=== PATIENT | female | born 1960 | race Caucasian/White ===

== ENCOUNTER 2016-03-14 10:45 | Emergency (ER) | payer OTHER ==
[~2016-03-14] VITALS: Ht 157.5 cm; Wt 81.6 kg
[2016-03-14 10:55] VITALS: BP 158/90
--- NOTE | 2016-03-14 11:57 | ED EYE COMPLAINT ---
History of Present Illness General Chief Complaint: Eye Problems Stated Complaint: SENT IN BY EYE FOR FLOATERS IN EYE/VISION PROB Source: patient Exam Limitations: no limitations Vital Signs & Intake/Output Vital Signs & Intake/Output Vital Signs Date Time Temp Pulse Resp B/P Pulse O2 O2 Flow FiO2 Ox Delivery Rate 03/14 1055 97.3 82 20 158/90 97 Room Air Allergies Coded Allergies: No Known Allergies (03/14/16) Reconcile Medications No Known Home Medications Triage Note: PT TO ED C/O "FLOATERS" IN HER RIGHT EYE. ALSO C/O WORSENING BLURRED VISION TO RIGHT EYE. UNABLE TO SEE EYE DOCTOR DUE TO HOLIDAY. Triage Nurses Notes Reviewed? yes Onset: Abrupt Duration: day(s):, constant, continues in ED Timing: recent history Injury Environment: home Severity: moderate, severe No Modifying Factors: none Right Eye Associated Symptoms: blurred vision, floaters : No HPI: 55-year-old female comes into emergency room for further evaluation of floaters in her right eye for about a week. Patient reports that this past 5 days ago she started to have some blurry vision to the peripheral vision medially in her right eye. Denies any pain to the eye. Denies any trauma to the eye. Denies any prior symptoms like this or any other associated symptoms. (MICHEL YORK) Past History Travel History Traveled to [place] past 21 day No Medical History Any Pertinent Medical History? see below for history Cardiovascular: hypertension Surgical History Surgical History: non-contributory Psychosocial History What is your primary language Kazakh Tobacco Use: Never used ETOH Use: denies use Illicit Drug Use: denies illicit drug use Family History Hx Contributory? No (MICHEL YORK) Review of Systems Review of Systems Constitutional: Reports: no symptoms. Eyes: Reports: see HPI. Ear: Reports: no symptoms. Nose: Reports: no symptoms. Mouth: Reports: no symptoms. Throat: Reports: no symptoms. Respiratory: Reports: no symptoms. Cardiovascular: Reports: no symptoms. GI: Reports: no symptoms. Genitourinary: Reports: no symptoms. Musculoskeletal: Reports: no symptoms. Skin: Reports: no symptoms. Neurological/Psychological: Reports: no symptoms. Hematologic/Endocrine: Reports: no symptoms. Immunologic/Allergic: Reports: no symptoms. All Other Systems: Reviewed and Negative (MICHEL YORK) Physical Exam General Appearance: well developed/nourished, mild distress General Inspection: normal inspection Eyelid: normal inspection Conjunctiva/Sclera: normal inspection Cornea: normal inspection EOM: intact Pupil: normal accommodation, normal pupil, PERRL Anterior Chamber: normal inspection General Inspection: normal inspection Eyelid: normal inspection Conjunctiva/Sclera: normal inspection, exudate Cornea: normal inspection EOM: intact Pupil: normal accommodation, normal pupil, irregular pupillary shape, delayed accommodation of medial peripheral vision of right eye with left eye covered Posterior Segments: normal funduscopic Physical Exam Head: atraumatic Nose: normal inspection Mouth/Throat: normal mouth inspection Neck: normal inspection, supple Cardiovascular/Respiratory: normal breath sounds, regular rate/rhythm Neurologic/Psych: awake, alert, oriented x 3, normal mood/affect Skin: intact, normal color, warm/dry (MICHEL YORK) Progress Differential Diagnosis: corneal abrasion, corneal foreign body, conjunctivitis, detached retina, glaucoma, globe rupture, retinal art./v. occlusion Plan of Care: 03/14/2016 12:26:43 PM While the patient was waiting she was able to get a appointment with an airplane fueler and water very at 12:15 PM. The current time is 10 of 12pm. Patient was sent to the eye doctor. A bedside ultrasound assessing for retinal detachment was not able to be performed. Patient was urged to have the eye doctor called the emergency room to speak with me evaluated. Patient was told that she needs extremely close follow-up with welder/installer tomorrow. I screen her retinal detachment is a possibility. Symptoms of been going on for about a week. Patient has no vision loss. Visual acuity is 20/30 right eye and 20/15 left eye. Patient does wear glasses. Case discussed with Dr. Leyva. He agrees with plan of care. Patient is to return immediately if any other concerns worsening of symptoms. (MICHEL YORK) Departure Departure Disposition: HOME OR SELF CARE Condition: Stable Clinical Impression Primary Impression: Blurry vision, right eye Referrals: PATIENT HAS NO PRIMARY CARE DR (PCP/Family) Referred to [facility] as new patient No Additional Instructions: Go directly to see her airplane fueler at this time. Please have him call the emergency room at [phone] after he evaluated you. You need to see her welder/installer tomorrow as soon as possible. Please return if any other concerns worsening symptoms. Please go over all results of today's visit with your primary care doctor. Contact your primary care doctor to let them know you were here in the emergency room. There may be nonspecific findings which may not be related to your visit today here in the emergency room but may require further evaluation and chronic monitoring by your primary care doctor. If you had a laceration today the chance of foreign body always remains. You should follow-up with your primary care doctor for recheck in 3-5 days for a wound check. If you had an x-ray done there is a chance that a fracture could have been missed on initial read and you should follow-up with your primary care doctor for repeat x-rays if symptoms persist. If your blood pressure was elevated here in the emergency room please have rechecked by her primary care doctor within the next 48 hours by your primary care doctor. If you were prescribed a narcotic here in the emergency room or any type of controlled substances you're not allowed to drive while taking this medication or operate any type of heavy machinery. Narcotics can make you feel lightheaded dizziness nausea and can cause constipation. You may need to chart picker a stool softener. Thank you for choosing [facility] emergency room. Please return to the emergency room immediately if you have any other concerns worsening of symptoms. Departure Forms: Customer Survey General Discharge Information Prescriptions: Current Visit Scripts No Known Home Medications (MICHEL YORK) PA/SIEVE REPAIRER Co-Sign Statement Statement: ED Attending supervision documentation- [] I saw and evaluated the patient. I have also reviewed all the pertinent lab results and diagnostic results. I agree with the findings and the plan of care as documented in the PA's/SIEVE REPAIRER's documentation. [X] I have reviewed the ED Record and agree with the PA's/SIEVE REPAIRER's documentation. [] Additions or exceptions (if any) to the PAs/SIEVE REPAIRER's note and plan are summarized below: [] (HENRY LEYVA DO
== END 2016-03-14 12:00 ==
LOC: ERH 10:45
DX: H53.8 Other visual disturbances (principal)
CPT/HCPCS: 99282